=== PATIENT | male | born 2000 | race Two or more races ===

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

== ENCOUNTER 2022-03-29 10:26 | Emergency (ER) | payer MEDICAID, OTHER ==
[~2022-03-29] VITALS: Ht 182.9 cm; Wt 66.8 kg
[2022-03-29 13:25] VITALS: BP 124/87
[2022-03-29] MEDS ORDERED: ONDANSETRON ODT 4 MG TAB PO ONE (14:30)
[2022-03-29] MEDS ORDERED: ACETAMINOPHEN 500 MG TAB PO ONE (14:30)
[2022-03-29] MEDS ORDERED: IBUP600T28 PO (14:32)
[2022-03-29] MEDS ORDERED: ONDA-144 PO (14:32)
[2022-03-29] MEDS ORDERED: CYCL-839 PO (14:39)
== END 2022-03-29 14:42 | disposition home or self-care (01) ==
LOC: ER 10:26
DX: S06.0X0A Concussion without loss of consciousness, initial encounter (principal); S39.012A Strain of muscle, fascia and tendon of lower back, initial encounter; Z79.1 Long term (current) use of non-steroidal anti-inflammatories (NSAID); Z79.899 Other long term (current) drug therapy; V47.5XXA Car driver injured in collision with fixed or stationary object in traffic accident, initial encounter; Y93.89 Activity, other specified; Y92.410 Unspecified street and highway as the place of occurrence of the external cause; Y99.8 Other external cause status
CPT/HCPCS: 70450; 72100; 99284; Q0162